=== PATIENT | female | born 1995 | race Caucasian/White ===

== ENCOUNTER 2020-09-09 14:58 | Inpatient (IN) ==
[~2020-09-09 14:58] MED LIST: Etomidate 40 mg/20 ml (2 MG/ML) 20 ml VIAL (40 mg) ONE; Midazolam 10 mg/10 ml VIAL 1 mg/ml 10 ml VIAL (10 mg) ONE; Propofol 10 MG/ML 20 ML BTL ONE; fentaNYL 250 mcg/5 ml 50 MCG/ML 5 ml VIAL (250 MCG) ONE
[2020-09-09] MEDS ORDERED: LORazepam 2 mg VIAL 1 ml IV PUSH ONE (17:54)
[2020-09-09] MEDS ORDERED: Lorazepam PYXIS KEY PRN ×2 (17:54→20:52)
[2020-09-09] MEDS ORDERED: Magnesium Sulfate IV 1GM/100ML 1 GM/100 ML BAG IV ONE (17:54)
[2020-09-09] MEDS ORDERED: Lorazepam PYXIS KEY ONE (17:56)
[2020-09-09] MEDS ORDERED: Dexamethasone IV 4 MG/ML VIAL 1 ml VIAL IV SLOW PU ONE (18:02)
[2020-09-09 18:28] LABS: ABS Lymphocytes 1.5 10^3/ul (1.0-4.8); ABS Monocytes 0.7 10^3/ul (0-0.8); Eosinophil % 0.1 %; Hematocrit 43 % (35-47); Hemoglobin 14.8 g/dL (12.0-16.0); Lymphocyte % 16.6 %; Mean Corpuscular HGB Conc 35 g/dL (31-36); Mean Corpuscular Hemoglobin 30 pg (27-31); Mean Corpuscular Volume 88 fL (80-97); Mean Platelet Volume 8.8 fL (7.4-10.4); Platelet Count 239 10^3/uL (150-450); Red Blood Count 4.86 10^6 /uL (3.70-4.87); Red Cell Distribution Width 13 % (10-15); White Blood Count 9.2 10^3/uL (3.5-10.8)
[2020-09-09 18:37] LABS: Activated Partial Thrombo Time 28.5 seconds (26.0-38.0); INR 1.06 (0.82-1.09)
[2020-09-09 18:50] LABS: ALT 10 U/L (7-52); AST 16 U/L (13-39); Albumin 5.1 g/dL (3.2-5.2); Albumin/Globulin Ratio 1.5 (1-3); Alkaline Phosphatase 48 U/L (34-104); Anion Gap 12 mmol/L (2-11); BUN/Creatinine Ratio 16.5 (8-20); Blood Urea Nitrogen 13 mg/dL (6-24); C Reactive Protein 8.82 mg/L (<8.01); CO2 Carbon Dioxide 24 mmol/L (22-32); Calcium 10.3 mg/dL (8.6-10.3); Chloride 101 mmol/L (101-111); EGFR African American 110.1 (>60); Globulin 3.3 g/dL (2-4); Glucose 85 mg/dL (70-100); LDH 158 U/L (140-271); Potassium 3.4 mmol/L (3.5-5.0); Sodium 137 mmol/L (135-145); Total Protein 8.4 g/dL (6.4-8.9)
[2020-09-09 18:53] LABS: Influenza A Molecular Negative (Negative); Influenza B Molecular Negative (Negative)
[2020-09-09 18:54] LABS: Urine Appearance Cloudy; Urine Bilirubin Negative (Negative); Urine Blood Negative (Negative); Urine Color Yellow; Urine Glucose Negative (Negative); Urine Ketones 1+ (Negative); Urine Nitrite Negative (Negative); Urine Protein Negative (Negative); Urine Specific Gravity 1.011 (1.010-1.030); Urine Urobilinogen Negative (Negative)
[2020-09-09 18:56] LABS: HCG Pregnancy < 0.60 mIU/mL
[2020-09-09 19:00] LABS: Urine Bacteria 1+ (Absent); Urine Red Blood Cell 1+(3-5/hpf) (Absent); Urine Squamous Epithelial Cell Present (Absent); Urine White Blood Cell 2+(11-20/hpf) (Absent)
[2020-09-09] MEDS ORDERED: cefTRIAXone 1 gm/50 mL NS BAG 1 GM/50 ML BAG IVPB ONE (20:44)
[2020-09-09] MEDS ORDERED: Furosemide 20 mg/2 ml IV VIAL IV ONE (20:47)
[2020-09-09] MEDS ORDERED: Enoxaparin 30 MG/0.3 ML SYR SUBCUT ONE (20:51)
[2020-09-09] MEDS ORDERED: Albuterol/Ipratropium NEB.SOL (2.5/0.5 MG) 3 ML NEB.SOLN INH PRN (20:56)
[2020-09-09 21:57] LABS: TSH Ultra Thyroid Stim Horm 1.22 mcIU/mL (0.34-5.60)
[2020-09-10 07:12] LABS: ABS Lymphocytes 1.1 10^3/ul (1.0-4.8); ABS Monocytes 0.4 10^3/ul (0-0.8); Hematocrit 41 % (35-47); Hemoglobin 13.8 g/dL (12.0-16.0); Lymphocyte % 14.2 %; Mean Corpuscular HGB Conc 34 g/dL (31-36); Mean Corpuscular Hemoglobin 30 pg (27-31); Mean Corpuscular Volume 89 fL (80-97); Mean Platelet Volume 9.3 fL (7.4-10.4); Platelet Count 232 10^3/uL (150-450); Red Blood Count 4.61 10^6 /uL (3.70-4.87); Red Cell Distribution Width 13 % (10-15); White Blood Count 7.5 10^3/uL (3.5-10.8)
[2020-09-10] MEDS: LORazepam 2 mg VIAL 1 ml IV PUSH PRN ×2 (07:23)
[2020-09-10 07:25] LABS: BUN/Creatinine Ratio 22.1 (8-20); C Reactive Protein 6.82 mg/L (<8.01); Calcium 9.8 mg/dL (8.6-10.3); EGFR African American 99.8 (>60); EGFR Non-African American 82.5 (>60); Potassium 3.7 mmol/L (3.5-5.0)
[2020-09-10] MEDS ORDERED: Furosemide 40 mg/4 ml IV VIAL ONE (08:13)
[2020-09-10] MEDS ORDERED: methylPREDNISolone 125 mg 2 ML VIAL ONE (08:16)
[2020-09-10] MEDS ORDERED: methylPREDNISolone 125 mg 2 ML VIAL IV ONE (08:17)
[2020-09-10] MEDS ORDERED: Furosemide 40 mg/4 ml IV VIAL IV ONE (08:17)
[2020-09-10] MEDS: Ondansetron 4 mg VIAL 2 MG/ML 2 ml VIAL IV PRN (08:27)
[2020-09-10] MEDS ORDERED: Albuterol/Ipratropium NEB.SOL (2.5/0.5 MG) 3 ML NEB.SOLN INH SCH (09:00)
[2020-09-10 09:06] LABS: Magnesium 2.2 mg/dL (1.9-2.7); Phosphorus 5.2 mg/dL (2.5-5.0)
[2020-09-10 10:06] LABS: Urine Appearance Cloudy; Urine Bilirubin Negative (Negative); Urine Blood Negative (Negative); Urine Color Straw; Urine Glucose Negative (Negative); Urine Ketones Trace (Negative); Urine Nitrite Negative (Negative); Urine Protein Negative (Negative); Urine Specific Gravity 1.006 (1.010-1.030); Urine Urobilinogen Negative (Negative)
[2020-09-10] MEDS ORDERED: Albuterol/Ipratropium NEB.SOL (2.5/0.5 MG) 3 ML NEB.SOLN INH PRN (10:10)
[2020-09-10] MEDS ORDERED: Propofol 10 mg/ml 100 ML BTL 100 ML ONE (10:36)
[2020-09-10] MEDS ORDERED: Midazolam 2 mg/2 ml VIAL 1 mg/ml 2 ml VIAL (2 mg) IV SLOW PU ONE (10:59)
[2020-09-10] MEDS ORDERED: fentaNYL INFUSION 50 MCG/ML 2,500 MCG/50 ML BAG IV SCH (11:00)
[2020-09-10] MEDS ORDERED: Propofol 10 mg/ml 100 ML BTL 100 ML IV SCH (11:00)
[2020-09-10] MEDS: fentaNYL INFUSION 50 MCG/ML 2,500 MCG/50 ML BAG IV SCH (11:44)
[2020-09-10] MEDS: Propofol* 20 ML VIAL - FOR IV LINE PRIMING ONLY SCH (12:07)
[2020-09-10] MEDS ORDERED: Lorazepam PYXIS KEY ONE (12:34)
[2020-09-10] MEDS ORDERED: LORazepam 2 mg VIAL 1 ml IV PUSH ONE (12:36)
[2020-09-10] MEDS ORDERED: Iodixanol (CONTRAST) 320 MG/ML 100 ML SDV IV ONE (15:36)
[2020-09-10 18:38] LABS: Urine Benzodiazepine Screen Presumptive Positive (None Detect); Urine Cannabinoids Screen Presumptive Positive (None Detect); Urine Opiates Screen None Detected (None Detect)
[2020-09-10] MEDS: Enoxaparin 40 MG/0.4 ML SYR SUBCUT SCH (20:21)
[2020-09-10] MEDS: Propofol 10 mg/ml 100 ML BTL 100 ML IV SCH (21:34)
[2020-09-10] MEDS: Pantoprazole VIAL 40 MG VIAL IV SCH (21:36)
[2020-09-11] MEDS: Chlorhexidine MOUTHWASH 0.12% 15 ML UDC TOPICAL SCH ×3 (00:09→08:17)
[2020-09-11] MEDS: Propofol* 20 ML VIAL - FOR IV LINE PRIMING ONLY SCH (00:10)
[2020-09-11] MEDS: fentaNYL INFUSION 50 MCG/ML 2,500 MCG/50 ML BAG IV SCH (02:35)
[2020-09-11] MEDS ORDERED: Lactated Ringers 1000 ml BAG 1,000 ML IV SCH (05:15)
[2020-09-11] MEDS: Propofol 10 mg/ml 100 ML BTL 100 ML IV SCH (05:39)
[2020-09-11 06:09] LABS: ABS Lymphocytes 1.9 10^3/ul (1.0-4.8); ABS Monocytes 0.9 10^3/ul (0-0.8); ABS Neutrophils 8.2 10^3/ul (1.5-7.7); Eosinophil % 0.1 %; Hematocrit 40 % (35-47); Hemoglobin 13.2 g/dL (12.0-16.0); Lymphocyte % 17.4 %; Mean Corpuscular HGB Conc 33 g/dL (31-36); Mean Corpuscular Hemoglobin 29 pg (27-31); Mean Corpuscular Volume 88 fL (80-97); Mean Platelet Volume 9.3 fL (7.4-10.4); Platelet Count 222 10^3/uL (150-450); Red Blood Count 4.49 10^6 /uL (3.70-4.87); Red Cell Distribution Width 13 % (10-15)
[2020-09-11 06:51] LABS: Albumin 4.4 g/dL (3.2-5.2); Total Bilirubin 0.4 mg/dL (0.2-1.0)
[2020-09-11 07:01] LABS: Albumin/Globulin Ratio 1.5 (1-3); BUN/Creatinine Ratio 40.4 (8-20); EGFR African American 90.1 (>60); EGFR Non-African American 74.5 (>60); Globulin 2.9 g/dL (2-4); Potassium 3.5 mmol/L (3.5-5.0); Total Protein 7.3 g/dL (6.4-8.9)
[2020-09-11] MEDS: Pantoprazole VIAL 40 MG VIAL IV SCH (08:17)
[2020-09-11] MEDS ORDERED: methylPREDNISolone SOD 40 mg/ml 1 ml VIAL IV SCH (09:00)
[2020-09-11] MEDS ORDERED: LORazepam 2 mg VIAL 1 ml IV PUSH PRN ×2 (11:12→11:48)
[2020-09-11] MEDS ORDERED: Albuterol/Ipratropium NEB.SOL (2.5/0.5 MG) 3 ML NEB.SOLN INH PRN (13:10)
[2020-09-11] MEDS: Ondansetron 4 mg VIAL 2 MG/ML 2 ml VIAL IV PRN ×2 (13:28→21:57)
[2020-09-11] MEDS ORDERED: Metoclopramide 5 MG/ML VIAL (10 mg) IV SLOW PU ONE (14:36)
[2020-09-11] MEDS ORDERED: Haloperidol 5 mg/ml SDV IV/IM 5 MG/ML AMP IV SLOW PU PRN ×2 (14:37→16:46)
[2020-09-11] MEDS ORDERED: Haloperidol 5 mg/ml SDV IV/IM 5 MG/ML AMP ONE (14:43)
[2020-09-11 17:01] LABS: HIV 4th Generation Nonreactive (Nonreactive)
[2020-09-11] MEDS: Enoxaparin 40 MG/0.4 ML SYR SUBCUT SCH (21:43)
[2020-09-12] MEDS ORDERED: Ondansetron 4 mg VIAL 2 MG/ML 2 ml VIAL IV PRN (03:01)
[2020-09-12 11:52] VITALS: BP 119/67
== END 2020-09-12 13:20 | disposition home or self-care (01) | DRG 141 ==
LOC: ED 14:58 → MED 21:41 → ICU 09-10 08:16 → MEDTELE 09-11 19:09
PROVIDERS: ADMIT Internal Medicine; ATTEND Internal Medicine